=== PATIENT | male | born 1940 | race Hispanic/Latino ===

== ENCOUNTER 2017-09-12 07:31 | Emergency (ER) | payer MEDICARE ==
[2017-09-12 08:03] VITALS: TEMP 97.8; BMI 26.9
[2017-09-12] MEDS ORDERED: Sodium Chloride 0.9% 500 ML IV STA (08:09)
--- NOTE | 2017-09-12 08:16 | ED PDOC ---
Arrival/HPI - General Historian: Patient - History of Present Illness Time/Duration: 24 hours Symptom Onset: Sudden Symptom Course: Intermittent Quality: Aching Severity Level: Moderate Activities at Onset: Rest Context: Home - General Time Seen by Provider: 09/12/17 07:35 - History of Present Illness Narrative History of Present Illness (Text): 09/12/17 08:12 77yo M PMH CAD s/p 2 stents, nephrolithasis and BPH who presents with L flank pain x1 day. pt notes that 10 days ago, he noticed dark urine and sediments at the bottom of his toilet. Yesterday, he notes flank pain radiating anteriorly and n/v; pt also feels constipated due to diet habits, last BM Was yesterday. pt denies fevers, cp, sob, abdominal pain, current hematuria, urinary changes ( although does admit to dribbling due to BPH), bowel changes, headache, weakness. PMD: Dr. Perry ([facility]) Past Medical History - Provider Review Nursing Documentation Reviewed: Yes - Cardiac Hx Cardiac Disorders: Yes Hx Coronary Artery Disease: Yes (s/p 2 stents) Other/Comment: heart block, stents - Pulmonary Hx Respiratory Disorders: No - Neurological Hx Neurological Disorder: No - HEENT Hx HEENT Disorder: No - Renal Hx Kidney Stones: Yes Other/Comment: prostate - Endocrine/Metabolic Hx Endocrine Disorders: No - Hematological/Oncological Hx Blood Disorders: No - Integumentary Hx Dermatological Disorder: No - Musculoskeletal/Rheumatological Hx Musculoskeletal Disorders: No - Gastrointestinal Hx Gastrointestinal Disorders: No - Genitourinary/Gynecological Hx Genitourinary Disorders: No - Psychiatric Hx Psychophysiologic Disorder: No Hx Substance Use: No - Surgical History Hx Angioplasty: Yes (x2 with 2 stents placed ) Hx Appendectomy: Yes - Anesthesia Hx Anesthesia: Yes - Suicidal Assessment Feels Threatened In Home Enviroment: No Family/Social History - Physician Review Nursing Documentation Reviewed: Yes Family/Social History: No Known Family HX Smoking Status: Never Smoked Hx Alcohol Use: No Hx Substance Use: No Hx Substance Use Treatment: No Allergies/Home Meds Allergies/Adverse Reactions: Allergies No Known Allergies Allergy (Verified 09/12/17 08:03) Home Medications: Home Meds Medication Instructions Recorded Confirmed Atorvastatin Calcium [Lipitor] 40 mg PO DAILY 10/21/14 09/12/17 Carvedilol Phosphate [Coreg Cr] 40 mg PO DAILY 10/21/14 09/12/17 Aspirin [Durlaza] 162.5 mg PO DAILY 09/12/17 09/12/17 Review of Systems - Physician Review All systems were reviewed & negative as marked: Yes - Review of Systems Constitutional: absent: Fevers Respiratory: absent: SOB Cardiovascular: absent: Chest Pain Gastrointestinal: Constipation, Nausea, Vomiting. absent: Diarrhea Genitourinary Male: absent: Dysuria, Hematuria Musculoskeletal: Other (L flank pain) Physical Exam Vital Signs Reviewed: Yes Appearance: Positive for: Well-Appearing Pain Distress: None Mental Status: Positive for: Alert and Oriented X 3 - Systems Exam Head: Present: Atraumatic, Normocephalic Pupils: Present: PERRL Extroacular Muscles: Present: EOMI Conjunctiva: Present: Normal Mouth: Present: Moist Mucous Membranes Neck: Present: Normal Range of Motion Respiratory/Chest: Present: Clear to Auscultation, Good Air Exchange Cardiovascular: Present: Regular Rate and Rhythm, Normal S1, S2 Abdomen: No: Tenderness (mild diffuse), Distention, Normal Bowel Sounds ( hypoactive), Peritoneal Signs, Guarding Back: Present: Normal Inspection. No: CVA Tenderness Upper Extremity: Present: Normal Inspection Lower Extremity: Present: Normal Inspection. No: Edema Neurological: Present: CN II-XII Intact Skin: Present: Warm, Dry Psychiatric: Present: Alert, Oriented x 3 Vital Signs Temp Pulse Resp BP Pulse Ox 09/12/17 11:54 81 18 135/85 95 09/12/17 08:03 97.8 F 89 17 139/97 H 94 L 09/12/17 08:02 97.8 F 89 17 139/97 H 94 L Medical Decision Making Re-evaluation Time: 12:04 Reassessment Condition: Re-examined, Improved - Lab Interpretations I have reviewed the lab results: Yes - RAD Interpretation Hvac Journeyman: Radiologist ED Course and Treatment: 09/12/17 08:19 Impression: 77yo M PMH nephrolithiasis presenting with L flank pain likely due to nephrolithiasis vs renal colic r/o obstruction/hydronephrosis Plan: - Abd Ct - Toradol - Labs - UA Progress: 09/12/17 10:33 Reassessment: pt offering no complaints of abdominal or flank pain. 09/12/17 10:53 Creator : Sid Verdugo MD Dictator : Sid Verdugo MD Aircraft Sales Representative : Third Cook : Sid Verdugo MD Approver2 : Report Date : 09/12/2017 10:44:01 My Comment : PROCEDURE: CT Abdomen and Pelvis without intravenous contrast HISTORY: hx nephrolithasis r/o obstruction COMPARISON: 10/21/2014 CT TECHNIQUE: Without contrast. Contrast Dose: Radiation dose: Total exam DLP = 996 mGy-cm. This CT exam was performed using one or more of the following dose reduction techniques: Automated exposure control, adjustment of the mA and/or kV according to patient size, and/or use of iterative reconstruction technique. FINDINGS: LOWER THORAX: Unremarkable. LIVER: Unremarkable. No gross lesion or ductal dilatation. GALLBLADDER AND BILE DUCTS: Unremarkable. PANCREAS: Unremarkable. No gross lesion or ductal dilatation. SPLEEN: Unremarkable. ADRENALS: Unremarkable. No mass. KIDNEYS AND URETERS: There is a 7 mm stone in the left proximal ureter with mild hydronephrosis. There is bilateral nephrolithiasis. There is a simple cyst in the upper pole of the right kidney. Findings are best seen on axial image 85 series 2 and coronal image 71. VASCULATURE: Aortic calcification BOWEL: Unremarkable. No obstruction. No gross mural thickening. APPENDIX: Unremarkable. Normal appendix. PERITONEUM: Unremarkable. No free fluid. No free air. LYMPH NODES: Unremarkable. No enlarged lymph nodes. BLADDER: Unremarkable. REPRODUCTIVE: Unremarkable. BONES: No acute fracture. OTHER FINDINGS: None. IMPRESSION: 7 mm obstructing stone in the left proximal ureter with mild hydronephrosis 09/12/17 12:03 Reassessment: pt resting comfortably, O2 sat 96% as noted by me, pt offering no complaints. pt contacted by Dr. Alexis to plan for outpatient procedure. medically stable for d/c (Delvin,Nikko) 09/12/17 09:06 77 yo male with left flank pain. Agree with resident history and physical, assessment and plan. Physical exam: Abdomen is soft and not tender. No guarding. ND. BSx4 and normal. Back: No CVAT tenderness, no paraspinal tenderness. Patient had a kidney stone in the past and saw Dr. Johnson. He was supposed to have lithotripsy but they procedure was cancelled. Coincidentally he said the pain went away so he didn't need the procedure. 09/12/17 12:04 Patient resting comfortably in no pain. He states that he feels much better. He is able to urinate. I discussed the case with Dr. Alexis who I reviewed all labs, UA and CT results with. He recommends having patient call the office today to set up a follow up visit so that he can get an appointment for a procedure. He recommended patient take flomax, bactrim and medication for pain. Patient was given clear discharge instructions which he repeated to me. He understands how critical a follow up appointment is with Dr. Alexis and we will make sure to call to f/u in 1-2days. Advised him to return if symptoms worsen or any other concern. (Nicholas Nolan) - Lab Interpretations Lab Results: 09/12/17 08:09 09/12/17 08:09 Lab Results 09/12/17 09:07: Urine Color Yellow, Urine Appearance Sl cloudy, Urine pH 6.0, Ur Specific [place] 1.025, Urine Protein Trace H, Urine Glucose (UA) Negative, Urine Ketones Trace H, Urine Blood Moderate H, Urine Nitrate Negative, Urine Bilirubin Small H, Urine Urobilinogen 0.2, Ur Leukocyte Esterase Negative, Urine RBC 15 - 20, Urine WBC 0 - 2, Ur Epithelial Cells 6 - 8, Urine Other Mucus 09/12/17 08:09: Sodium 142, Potassium 4.4, Chloride 103, Carbon Dioxide 27, Anion Gap 16, BUN 20, Creatinine 1.6 H, Est GFR ( Amer) 51, Est GFR (Non- Af Amer) 42, Random Glucose 123 H, Calcium 9.4, Total Bilirubin 1.9 H, AST 27, ALT 25, Alkaline Phosphatase 123, Total Protein 7.5, Albumin 4.3, Globulin 3.3, Albumin/Globulin Ratio 1.3 09/12/17 08:09: WBC 11.9 H D, RBC 5.71, Hgb 17.7, Hct 50.0, MCV 87.6, MCH 31.0, MCHC 35.4, RDW 13.1, Plt Count 160, MPV 10.1, Gran % 83.2 H, Lymph % (Auto) 8.2 L, Ashley % (Auto) 8.3 H, Eos % (Auto) 0.1 L, Baso % (Auto) 0.2, Gran # 9.92 H, Lymph # 1.0 L, Ashley # 1.0 H, Eos # 0.0, Baso # 0.02 - RAD Interpretation Radiology Orders: 09/12/17 08:09 ABD & PELVIS W/O PO OR IV CONT [CT] Stat - Medication Orders Current Medication Orders: Discontinued Medications Sodium Chloride (Sodium Chloride 0.9%) 500 mls @ 1,000 mls/hr IV .Q30M STA Stop: 09/12/17 08:38 Last Admin: 09/12/17 08:29 Dose: 1,000 mls/hr eMAR Start Stop Document 09/12/17 08:29 (Rec: 09/12/17 08:29 [id number]) Intravenous Solution Start Date 09/12/17 Start Time 08:29 End Date 09/12/17 End time 08:59 Total Infusion Time 30 Ketorolac Tromethamine (Toradol) 15 mg IVP STAT STA Stop: 09/12/17 08:10 Last Admin: 09/12/17 08:28 Dose: 15 mg MAR Pain Assessment Document 09/12/17 08:28 (Rec: 09/12/17 08:29 MR [id number]) Pain Reassessment Is this a pain reassessment? No Sleep Is patient sleeping during reassessment? No Presence of Pain Presence of Pain Yes Pain Scale Used Pain Scale Used Numeric Location Left, Right or Bilateral Left Pain Location Body Site Back Description Description Constant Intensity of Pain at present 7 Alleviating Factors/Management Medication Techniques Alleviating Factors Medication IVP Administration Document 09/12/17 08:28 (Rec: 09/12/17 08:29 MR [id number]) Charges for Administration # of IVP Administrations 1 Tamsulosin HCl (Flomax) 0.4 mg PO STAT STA Stop: 09/12/17 10:59 Last Admin: 09/12/17 12:03 Dose: 0.4 mg Trimethoprim/Sulfamethoxazole (Bactrim Ds Tab) 1 tab PO STAT STA PRN Reason: Protocol Stop: 09/12/17 11:02 Last Admin: 09/12/17 12:03 Dose: 1 tab Disposition/Present on Arrival - Present on Arrival Any Indicators Present on Arrival: No History of DVT/PE: No History of Uncontrolled Diabetes: No Urinary Catheter: No History of Decub. Ulcer: No History Surgical Site Infection Following: None - Disposition Have Diagnosis and Disposition been Completed?: Yes Disposition Time: 12:05 Patient Plan: Discharge - Disposition Diagnosis: Kidney stone Disposition: HOME/ ROUTINE Condition: IMPROVED Discharge Instructions (ExitCare): Kidney Stones (ED) Additional Instructions: Mr Lucero, thank you for letting us take care of you today. Your provider was Dr. Nolan. You were treated for Kidney Stone. The emergency medical care you received today was directed at your acute symptoms. If you were prescribed any medication, please fill it and take as directed. It may take several days for your symptoms to resolve. Return to the Emergency Department if your symptoms worsen, do not improve, or if you have any other problems. Please contact your doctor or call one of the physicians/clinics you have been referred to that are listed on the Patient Visit Information form that is included in your discharge packet. Bring any paperwork you were given at discharge with you along with any medications you are taking to your follow up visit. Our treatment cannot replace ongoing medical care by a primary care provider (PCP) outside of the emergency department. Thank you for allowing the [facility] team to be part of your care today. If you had an X-Ray or CT scan: A Radiologist will review the ED reading if any change in treatment is needed we will contact you. If you had a blood, urine, or wound culture: It will take several days for the results, if any change in treatment is needed we will contact you. If you had an STI test: It will take 48 hours for the results. Please call after 1 week if you have not heard back. Prescriptions: oxyCODONE/Acetaminophen [Percocet 5/325 mg Tab] 1 ea PO Q6 PRN #20 tab PRN Reason: Pain, Moderate (4-7) Sulfamethoxazole/Trimethoprim [Bactrim DS 800 mg-160 mg] 1 tab PO Q12 #28 tab Tamsulosin [Flomax] 0.4 mg PO QPM #20 cap Referrals: Juan Ramon Perry MD [Family Provider] - Follow up with primary Alex Alexis MD [Staff Provider] - Follow up with primary Forms: [employer] (Martiniquais), WORK NOTE
[2017-09-12 08:48] LABS: BASO # 0.02 K/mm3 (0.0-2.0); BASO % 0.2 % (0.0-3.0); EOS % 0.1 % (1.5-5.0); GRAN # 9.92 (1.4-6.5); GRAN % 83.2 % (50.0-68.0); LYMPH % 8.2 % (22.0-35.0); MEAN CELL VOLUME 87.6 fl (80.0-105.0); MEAN CORPUSCULAR HGB CONC 35.4 g/dl (31.0-37.0); MEAN PLATELET VOLUME 10.1 fl (7.0-11.0); MONO % 8.3 % (1.0-6.0); RED CELL DISTRIBUTION WIDTH 13.1 % (11.5-14.5); WHITE BLOOD COUNT 11.9 10^3/ul (4.5-11.0)
[2017-09-12 08:59] LABS: ALB/GLOB RATIO 1.3 (1.1-1.8); BILIRUBIN,TOTAL 1.9 mg/dL (0.2-1.3); CALCIUM 9.4 mg/dL (8.4-10.5); POTASSIUM 4.4 mmol/L (3.6-5.0); TOTAL PROTEIN 7.5 g/dL (5.8-8.3)
[2017-09-12 09:11] LABS: URINE BILIRUBIN SMALL (NEGATIVE); URINE BLOOD MODERATE (NEGATIVE); URINE GLUCOSE (UA) NEGATIVE (NEGATIVE); URINE KETONE TRACE mg/dL (NEGATIVE); URINE LEUKOCYTE ESTERASE NEGATIVE Leu/uL (NEGATIVE); URINE PROTEIN TRACE mg/dL (<30 mg/dL); URINE UROBILINOGEN 0.2 E.U./dL (<1 E.U./dL)
[2017-09-12 09:12] LABS: URINE APPEARANCE SL CLOUDY (CLEAR); URINE COLOR YELLOW (YELLOW)
[2017-09-12 09:18] LABS: URINE RBC 15 - 20 /hpf (0-2); URINE WBC 0 - 2 /hpf (0-6)
--- NOTE | 2017-09-12 10:45 | CT ---
PROCEDURE: CT Abdomen and Pelvis without intravenous contrast HISTORY: hx nephrolithasis r/o obstruction COMPARISON: 10/21/2014 CT TECHNIQUE: Without contrast. Contrast Dose: Radiation dose: Total exam DLP = 996 mGy-cm. This CT exam was performed using one or more of the following dose reduction techniques: Automated exposure control, adjustment of the mA and/or kV according to patient size, and/or use of iterative reconstruction technique. FINDINGS: LOWER THORAX: Unremarkable. LIVER: Unremarkable. No gross lesion or ductal dilatation. GALLBLADDER AND BILE DUCTS: Unremarkable. PANCREAS: Unremarkable. No gross lesion or ductal dilatation. SPLEEN: Unremarkable. ADRENALS: Unremarkable. No mass. KIDNEYS AND URETERS: There is a 7 mm stone in the left proximal ureter with mild hydronephrosis. There is bilateral nephrolithiasis. There is a simple cyst in the upper pole of the right kidney. Findings are best seen on axial image 85 series 2 and coronal image 71. VASCULATURE: Aortic calcification BOWEL: Unremarkable. No obstruction. No gross mural thickening. APPENDIX: Unremarkable. Normal appendix. PERITONEUM: Unremarkable. No free fluid. No free air. LYMPH NODES: Unremarkable. No enlarged lymph nodes. BLADDER: Unremarkable. REPRODUCTIVE: Unremarkable. BONES: No acute fracture. OTHER FINDINGS: None. IMPRESSION: 7 mm obstructing stone in the left proximal ureter with mild hydronephrosis
[2017-09-12] MEDS ORDERED: Tmp-Smz 800 mg-160 mg DS Tab PO STA (11:01)
[2017-09-12 11:55] VITALS: BP 135/85; PULSE 81; RESP 18; O2SAT 95
== END 2017-09-12 12:09 | disposition home or self-care (01) ==
LOC: ED 07:31
DX: N20.0 Calculus of kidney (principal); I25.10 Atherosclerotic heart disease of native coronary artery without angina pectoris; N40.0 Benign prostatic hyperplasia without lower urinary tract symptoms
CPT/HCPCS: 74176; 80053; 81001; 85025; 96374; 99284; J1885; J7040

== ENCOUNTER 2017-09-18 06:13 | Day surgery (SDC) | payer MEDICARE ==
[2017-09-17 15:20] VITALS: BMI 26.6
[2017-09-18] MEDS ORDERED: Propofol 10 mg/ml Inj (20 ML) ONE (08:05)
[2017-09-18] MEDS ORDERED: Lidocaine 2% Inj (20ml) ONE (08:05)
[2017-09-18] MEDS ORDERED: Midazolam 2 MG/2 ML VIAL ONE (08:05)
[2017-09-18] MEDS ORDERED: cefTRIAXone (Rocephin) 1 gm Inj ONE (08:25)
[2017-09-18] MEDS ORDERED: Iohexol 240 (50 ml) ONE (08:25)
--- NOTE | 2017-09-18 08:38 | RAD ---
HISTORY: pre-op COMPARISON: Chest radiographs 11/13/2014. FINDINGS: LUNGS: No active pulmonary disease. PLEURA: No significant pleural effusion identified, no pneumothorax apparent. CARDIOVASCULAR: Tendon magnification versus intrinsic cardiomegaly. No pulmonary vascular derangement appreciable however. OSSEOUS STRUCTURES: No significant abnormalities. VISUALIZED UPPER ABDOMEN: Normal. OTHER FINDINGS: None. IMPRESSION: No acute pulmonary disease identified in the interval. Technical magnification of the heart is favored over intrinsic cardiomegaly but clinical correlation is advised. No pulmonary vascular derangement identified.
[2017-09-18] MEDS ORDERED: HYDROmorphone 0.5 mg/0.5 ml ISec IVP PRN (09:09)
--- NOTE | 2017-09-18 10:24 | CARD ---
APPROVED REPORT EKG Measurement Heart [id number] <Conclusion> Sinus rhythm with 1st degree AV block Moderate voltage criteria for LVH, may be normal variant Inferior infarct, old No change
[2017-09-18 10:48] VITALS: TEMP 97.6; O2SAT 97
[2017-09-18 11:18] VITALS: BP 185/87; PULSE 61; RESP 98
--- NOTE | 2017-09-18 13:52 | RAD ---
PROCEDURE: Intraoperative Fluoroscopy. HISTORY: LEFT STENT INSERTION FINDINGS: Fluoroscopic assistance was provided for assisting referring physician in left ureteral stent insertion. Please refer to the was utilized with a cumulative dose of 5.65 mGy.
--- NOTE | 2017-09-19 11:27 | OP ---
PROCEDURE DATE: 09/18/2017 PREOPERATIVE DIAGNOSIS: Obstructing operative left ureteral calculus. POSTOPERATIVE DIAGNOSIS: Obstructing operative left ureteral calculus. PROCEDURE: Cystoscopy, manipulation of calculus into left renal pelvis, insertion of left Pigtail stent. SURGEON: Rick Johnson MD ANESTHESIA: LMA. DESCRIPTION OF OPERATION: After adequate LMA anesthesia was given, the patient was placed in lithotomy, prepped and draped in usual manner. A 22-Kyrgyz cystourethroscope was introduced under direct vision. The anterior urethra was normal. Prostatic urethra showed mild BPH. Bladder showed no tumors, foreign bodies, or stones. Orifices were normal in appearance and location. Clear efflux from the right. I did not see efflux from the left. There was grade 1 trabeculation. A 0.035 sensor wire initially was attempted to be passed through the orifice. There must have been some fish hooking. It would not go easily. So I removed it and used an open-ended catheter with a Glidewire. The Glidewire was able to be navigated up the ureter, passed the stone into the left renal pelvis. I then advanced the open-ended catheter over the Glidewire, was able to push the stone back into the renal pelvis. The Glidewire was removed. The 0.035 sensor wire was passed through the open-ended catheter. The catheter was then removed leaving the sensor in place. Over the sensor wire, a 6-Kyrgyz 28 cm Pigtail stent with the string removed was advanced and properly placed. The wire was removed and the stent coiled nicely in the left renal pelvis and the bladder. Upon initial introduction of the cystoscope, the urine was obtained for culture. The bladder was drained at the completion of the procedure. The patient was awakened and brought to the recovery room in good condition. Rick Johnson MD
== END 2017-09-18 14:15 | disposition home or self-care (01) ==
LOC: SDS 06:13
PROVIDERS: ATTEND Urology
DX: N20.1 Calculus of ureter (principal); I25.10 Atherosclerotic heart disease of native coronary artery without angina pectoris; I10 Essential (primary) hypertension
CPT/HCPCS: 52332; 71010; 76000; 87086; 93005; J0696; J1170; J2250; J2704; J3010; Q9966